=== PATIENT | female | born 1950 | race Caucasian/White ===

== ENCOUNTER → 2016-11-15 | Outpatient (CLI) | payer BC ==
[~2016-11-15] MED LIST: BUSPAR15 MG PO; CITALOPRAM HBR20 MG PO; LIBRIUM25 MG PO; PANTOPRAZOLE SO40 MG PO; PRAVASTATIN SOD40 MG PO
== END | disposition home or self-care (01) ==
LOC: RES 07:35
DX: R06.02 Shortness of breath (principal)
CPT/HCPCS: 94060; 94726; 94729